=== PATIENT | female | born 1985 | race Caucasian/White ===

== ENCOUNTER 2017-12-15 14:47 | Outpatient (CLI) | payer BC ==
--- NOTE | 2017-12-15 16:14 | MRI Report ---
Procedure Date: 12/15/2017 Accession Number: [id number] / [id number] Procedure: MRI - Knee RT W/O CPT Code: FULL RESULT: EXAM: RIGHT KNEE MRI WITHOUT CONTRAST EXAM DATE: 12/15/2017 03:52 PM. CLINICAL HISTORY: Right knee injury. Knee pain. COMPARISON: None. TECHNIQUE: Multiplanar, multisequence T1-weighted and fluid-sensitive sequences of the knee without contrast. Other: None. FINDINGS: Bones: Some artifact from previous ACL grafting. No fractures. Articular Cartilage: Unremarkable. Medial Meniscus: Complex undersurface degenerative tear mid body posterior horn. No displaced fragments. Series 501 image 5 for example. Lateral Meniscus: The lateral meniscus is intact. Cruciate Ligaments: PCL is normal, ACL graft appears intact. No tears. Collateral Ligaments: The medial collateral and lateral collateral ligamentous structures are intact. Tendons: The quadriceps, patellar, semimembranosus, and popliteus tendons are unremarkable. Musculature: No edema or fatty atrophy. Other: No effusion. No popliteal cyst. No loose bodies. The medial and lateral retinacula are intact. The subcutaneous tissues and fat pads are unremarkable. IMPRESSION: 1. Some artifact from previous ACL grafting. No fractures. 2. Complex undersurface degenerative tear of the midbody and posterior horn. No displaced fragments. 3. PCL normal, ACL graft appears intact. No tears. [facility] MUSCULOSKELETAL RADIOLOGY SECTION
== END 2017-12-15 14:48 | disposition home or self-care (01) ==
LOC: DI 14:47
PROVIDERS: ATTEND Nurse Practitioner Family
DX: S83.241A Other tear of medial meniscus, current injury, right knee, initial encounter (principal)